=== PATIENT | male | born 1975 | race Native Hawaiian/Other Pacific Islander ===

== ENCOUNTER 2021-05-03 09:29 | Emergency (ER) | payer BC ==
[2021-05-03 10:40] VITALS: BP 125/82
--- NOTE | 2021-05-03 12:20 | Emergency Department Report ---
ED General Adult HPI - General Chief complaint: Extremity Problem,Nontraumatic Stated complaint: LT ARM PAIN Time Seen by Provider: 05/03/21 12:15 Source: patient Mode of arrival: Ambulatory Limitations: No Limitations - History of Present Illness Initial comments: 46-year-old male patient presents with complaints of sudden onset of left inner elbow pain and swelling x2 days. He denies any injury, fever/chills/sweats, numbness/tingling/weakness, or difficulty moving his elbow. Patient also denies any recent long travel, cough, hemoptysis, shortness of breath, leg pain/swelling, history of DVT/PE/cancer. He rates his pain as a 9/10 in severity and states it worsens to touch. Patient states the pain does radiate up his arm into his left chest -: Sudden - Related Data Previous Rx's Medication Instructions Recorded Last Taken Type Acetaminophen 1,000 mg PO TID PRN #30 capsule 05/03/21 Unknown Rx Clindamycin [Clindamycin CAP] 300 mg PO Q6H 10 Days #40 capsule 05/03/21 Unknown Rx Ibuprofen [Motrin 800 MG tab] 800 mg PO Q8HR PRN #20 tablet 05/03/21 Unknown Rx Allergies Allergy/AdvReac Type Severity Reaction Status Date / Time No Known Allergies Allergy Unverified 05/03/21 10:37 ED Review of Systems ROS: Stated complaint: LT ARM PAIN Other details as noted in HPI Constitutional: denies: chills, diaphoresis, fever, malaise Respiratory: denies: cough, shortness of breath Cardiovascular: denies: chest pain Musculoskeletal: denies: joint swelling, arthralgia Skin: denies: change in color Neurological: denies: numbness, paresthesias ED Past Medical Hx - Past Medical History Previous Medical History?: No - Surgical History Past Surgical History?: No - Medications Home Medications: Home Medications Medication Instructions Recorded Confirmed Last Taken Type Acetaminophen 1,000 mg PO TID PRN #30 capsule 05/03/21 Unknown Rx Clindamycin [Clindamycin CAP] 300 mg PO Q6H 10 Days #40 capsule 05/03/21 Unknown Rx Ibuprofen [Motrin 800 MG tab] 800 mg PO Q8HR PRN #20 tablet 05/03/21 Unknown Rx ED Physical Exam - General Limitations: No Limitations General appearance: alert, in no apparent distress - Head Head exam: Present: atraumatic, normocephalic - Eye Eye exam: Present: normal appearance - Respiratory Respiratory exam: Present: normal lung sounds bilaterally. Absent: respiratory distress - Cardiovascular Cardiovascular Exam: Present: regular rate, normal rhythm - Extremities Exam Extremities exam: Present: other (Approximately 4 to 5 cm round area of swelling noted to left inner distal humerus just above the elbow mild redness and induration; area is significantly tender to palpation; normal radial and ulnar pulse noted) - Neurological Exam Neurological exam: Present: alert, oriented X3, normal gait - Psychiatric Psychiatric exam: Present: normal affect, normal mood - Skin Skin exam: Present: warm, dry, intact, normal color. Absent: rash ED Course Vital Signs 05/03/21 05/03/21 10:39 13:38 Temperature 98.0 F Pulse Rate 69 Respiratory 18 16 Rate Blood Pressure 125/82 O2 Sat by Pulse 99 Oximetry ED Medical Decision Making - Lab Data Result diagrams: 05/03/21 12:31 05/03/21 12:31 Lab Results 05/03/21 05/03/21 Range/Units 12:31 12:31 WBC 9.0 (4.5-11.0) K/mm3 RBC 5.11 H (3.65-5.03) M/mm3 Hgb 16.3 H (11.8-15.2) gm/dl Hct 46.2 H (35.5-45.6) % MCV 91 (84-94) fl MCH 32 (28-32) pg MCHC 35 H (32-34) % RDW 13.3 (13.2-15.2) % Plt Count 247 (140-440) K/mm3 Lymph % (Auto) 27.1 (13.4-35.0) % [place] % (Auto) 11.0 H (0.0-7.3) % Eos % (Auto) 3.8 (0.0-4.3) % Baso % (Auto) 0.5 (0.0-1.8) % Lymph # (Auto) 2.5 (1.2-5.4) K/mm3 [place] # (Auto) 1.0 H (0.0-0.8) K/mm3 Eos # (Auto) 0.3 (0.0-0.4) K/mm3 Baso # (Auto) 0.0 (0.0-0.1) K/mm3 Seg Neutrophils % 57.6 (40.0-70.0) % Seg Neutrophils # 5.2 (1.8-7.7) K/mm3 Sodium 138 (137-145) mmol/L Potassium 4.2 (3.6-5.0) mmol/L Chloride 102.1 (98-107) mmol/L Carbon Dioxide 28 (22-30) mmol/L Anion Gap 12 mmol/L BUN 14 (9-20) mg/dL Creatinine 0.6 L (0.8-1.3) mg/dL Estimated GFR > 60 ml/min BUN/Creatinine Ratio 23 % Glucose 93 (75-100) mg/dL Calcium 9.3 (8.4-10.2) mg/dL Total Bilirubin 0.50 (0.1-1.2) mg/dL AST 33 (5-40) units/L ALT 63 H (7-56) units/L Alkaline Phosphatase 58 (35-129) units/L Troponin T < 0.010 (0.00-0.029) ng/mL Total Protein 7.2 (6.3-8.2) g/dL Albumin 4.5 (3.9-5) g/dL Albumin/Globulin Ratio 1.7 % - Radiology Data Radiology results: report reviewed DUPLEX DOPPLER UPPER EXTREMITY VENOUS, LEFT INDICATION / CLINICAL INFORMATION: swelling near elbow. TECHNIQUE: Duplex doppler imaging was performed through the veins of the left upper extremity using venous compression and other maneuvers. COMPARISON: None available. FINDINGS: LEFT INTERNAL JUGULAR VEIN: Negative. LEFT SUBCLAVIAN VEIN: Negative. LEFT AXILLARY VEIN: Negative. LEFT BRACHIAL VEIN: Negative. LEFT FOREARM VEINS: Negative. LEFT BASILIC VEIN (SUPERFICIAL): Negative. ADDITIONAL FINDINGS: Within the antecubital fossa there are several enlarged reniform shaped lesions. IMPRESSION: 1. No sonographic evidence for DVT. 2. Several enlarged reniform shaped lesions within the antecubital fossa, which may represent reactive lymph nodes. Correlate for adjacent infectious process. In the absence of infectious process cross-sectional imaging is available as clinically warranted. - Medical Decision Making 46-year-old male patient presents with complaints of sudden onset of left inner elbow pain and swelling x2 days. He denies any injury, fever/chills/sweats, numbness/tingling/weakness, or difficulty moving his elbow. Patient also denies any recent long travel, cough, hemoptysis, shortness of breath, leg pain/swelling, history of DVT/PE/cancer. He rates his pain as a 9/10 in severity and states it worsens to touch. Patient states the pain does radiate up his arm into his left chest CBC is normal. No fever or tachycardia noted. Ultrasound is negative for DVT. Patient has normal radial and ulnar pulses. No pallor, decreased range of motion, or swelling of the arm or hand noted. Ultrasound shows possible reactive lymph nodes in the area. Given exam we will treat for deep skin infection infection. Patient denies IV drug use. Patient to follow-up with primary care in 3 days for recheck. He is well-appearing and stable for discharge home. Strict return precautions were discussed in detail patient verbalized understanding. Critical care attestation.: If time is entered above; I have spent that time in minutes in the direct care of this critically ill patient, excluding procedure time. ED Disposition Clinical Impression: Abscess of left arm Disposition: DC-01 TO HOME OR SELFCARE Is pt being admited?: No Condition: Stable Instructions: Skin Abscess Prescriptions: Acetaminophen 1,000 mg PO TID PRN #30 capsule PRN Reason: pain Clindamycin [Clindamycin CAP] 300 mg PO Q6H 10 Days #40 capsule Ibuprofen [Motrin 800 MG tab] 800 mg PO Q8HR PRN #20 tablet PRN Reason: pain Referrals: [facility] [place] [Provider Group] - 2-3 Days Forms: Work/School Release Form(ED) Print Language: TAMAZIGHT
[2021-05-03] MEDS ORDERED: oxyCODONE /ACETAMINOPHEN 5-325MG TAB PO ONE (12:25)
[2021-05-03 13:12] LABS: Basophils % (Auto) 0.5 % (0.0-1.8); Eosinophils # (Auto) 0.3 K/mm3 (0.0-0.4); Eosinophils % (Auto) 3.8 % (0.0-4.3); Hematocrit 46.2 % (35.5-45.6); Hemoglobin 16.3 gm/dl (11.8-15.2); Lymphocytes # (Auto) 2.5 K/mm3 (1.2-5.4); Lymphocytes % (Auto) 27.1 % (13.4-35.0); Mean Corpuscular HGB Conc 35 % (32-34); Mean Corpuscular Volume 91 fl (84-94); Platelet Count 247 K/mm3 (140-440); Red Blood Count 5.11 M/mm3 (3.65-5.03); Red Cell Distribution Width 13.3 % (13.2-15.2)
[2021-05-03 13:36] LABS: Alanine Aminotransferase 63 units/L (7-56); Albumin 4.5 g/dL (3.9-5); Blood Urea Nitrogen 14 mg/dL (9-20); Calcium 9.3 mg/dL (8.4-10.2); Hemolysis Index 6
--- NOTE | 2021-05-03 13:39 | Vascular Lab Report ---
DUPLEX DOPPLER UPPER EXTREMITY VENOUS, LEFT INDICATION / CLINICAL INFORMATION: swelling near elbow. TECHNIQUE: Duplex doppler imaging was performed through the veins of the left upper extremity using v enous compression and other maneuvers. COMPARISON: None available. FINDINGS: LEFT INTERNAL JUGULAR VEIN: Negative. LEFT SUBCLAVIAN VEIN: Negative. LEFT AXILLARY VEIN: Negative. LEFT BRACHIAL VEIN: Negative. LEFT FOREARM VEINS: Negative. LEFT BASILIC VEIN (SUPERFICIAL): Negative. ADDITIONAL FINDINGS: Within the antecubital fossa there are several enlarged reniform shaped lesions. IMPRESSION: 1. No sonographic evidence for DVT. 2. Several enlarged reniform shaped lesions within the antecubital fossa, which may represent reactiv e lymph nodes. Correlate for adjacent infectious process. In the absence of infectious process cross- sectional imaging is available as clinically warranted. Signer Name: Mingo Jeffery DO Signed: 05/03/2021 1:35 PM Workstation Name: [id number]
[2021-05-03 13:50] LABS: BUN/Creatinine Ratio 23
[2021-05-03] MEDS ORDERED: ACETAMINOPHEN 325 MG TAB PO ONE (15:15)
[2021-05-03] MEDS ORDERED: IBUPROFEN 800 MG TAB PO STA (15:15)
== END 2021-05-03 16:06 | disposition home or self-care (01) ==
LOC: ED 09:29
DX: L02.414 Cutaneous abscess of left upper limb (principal)
CPT/HCPCS: 36415; 80053; 84484; 85025; 99284